=== PATIENT | male | born 1990 | race Caucasian/White ===

== ENCOUNTER 2016-06-15 11:54 | Emergency (ER) | payer MEDICAID ==
[2016-06-15 11:58] VITALS: BP 128/69; PULSE 76; RESP 16; TEMP 97.9; O2SAT 97
[2016-06-15] MEDS ORDERED: FLUORESCEIN SODIUM 1 MG STRIP OP ONE ×2 (12:11→13:00)
[2016-06-15] MEDS ORDERED: PROPARACAINE 0.5% 15 ML OPHT DROP ONE (12:12)
--- NOTE | 2016-06-15 12:28 | EDPHY ---
H & P Stated Complaint: something in L eye HPI/ROS: Chief complaint: Foreign body in left eye History of present illness: This is a 26-year-old male who presents to the emergency department concerned he has a foreign body in his left eye. Patient states he was grilling yesterday when he felt something fly up into his eye. Since then he has had the sensation of something in his eye. He has attempted to wash his eye out multiple times but symptoms persist. He denies other associated signs or symptoms: No changes in vision, no headache. He does not use contacts or glasses. He has never had eye surgery. - Personal History Current Tetanus/Diphtheria Vaccine: Unsure Current Tetanus Diphtheria and Acellular Pertussis (TDAP): Unsure - Medical/Surgical History Hx Asthma: No Hx Chronic Respiratory Disease: No Hx Diabetes: No Hx Cardiac Disease: No Hx Renal Disease: No Hx Cirrhosis: No Hx Alcoholism: No Hx HIV/AIDS: No Hx Splenectomy or Spleen Trauma: No Other PMH: PMH: Denies - Social History Smoking Status: Never smoked - Physical Exam Exam: General Appearance: Alert, nontoxic Eyes: Periorbital tissues are unremarkable. There is no discharge from the eyes. No injection. No subconjunctival hemorrhage. No hyphema. No hypopyon. PERRLA. EOM intact. Red reflex present bilaterally. The superior eyelid is everted on the left eye and a small speck of foreign body is noted and gently removed with a cotton tip swab. No other foreign bodies noted. Respiratory: Chest is non tender, lungs are clear to auscultation. Cardiac: regular rate and rhythm Musculoskeletal: Neck is supple and non tender. Extremities have full range of motion and are non tender. Skin: No rashes or lesions. Constitutional: Initial Vital Signs Temperature (C) 36.6 C 06/15/16 11:57 Heart Rate 76 06/15/16 11:57 Respiratory Rate 16 06/15/16 11:57 Blood Pressure 128/69 H 06/15/16 11:57 O2 Sat (%) 97 06/15/16 11:57 O2 Delivery Mode Room Air Allergies/Adverse Reactions: No Known Allergies Allergy (Verified 02/18/16 10:32) Home Medications: Medication Instructions Recorded Amoxicillin/Clavulanate Pot 875 mg PO BID #6 tab 02/15/16 [Augmentin 875Mg] Polymyxin B Sulfate/Tmp [Polytrim 1 drops EACHEYE Q4 7 Days 06/15/16 Opht Drops (*)] Medical Decision Making Procedures: Visual acuities: Left eye 20/30, right eye 20/40, both eyes 20/30 Procedure: Slit-lamp examination Patient's eye was anesthetized with Alcaine and stained with fluorescein. Examination with cobalt blue and white light reveals a filling defect at the 5 o 'clock position over the iris. No foreign body. No cell and flare. No Ethan sign. ED Course/Re-evaluation: Patient seen under the supervision of my secondary supervising physician Dr. Seda Velázquez. Patient presents to the emergency department for left eye discomfort. A small foreign body is visualized and removed. A corneal abrasion is further noted. Patient's visual acuity appears intact. Patient will be discharged home. He is started on Ophthalmolic antibiotics. He is referred ophthalmology for further evaluation and care. Home care is discussed. Return precautions given. - Data Points Medications Given: Discontinued Medications Fluorescein Sodium ([id number]) 1 mg OP EDNOW ONE Stop: 06/15/16 13:01 Last Admin: 06/15/16 12:20 Dose: 1 mg Proparacaine HCl (Alcaine 0.5%) 1 drops LEFTEYE ONCE ONE Stop: 06/15/16 13:02 Last Admin: 06/15/16 12:20 Dose: 1 drop Departure - Departure Disposition: Home, Routine, Self-Care Clinical Impression: Eye foreign bodies Qualifiers: Encounter type: initial encounter Laterality: left Qualifier Code: (T15.92XA) Foreign body on external eye, part unspecified, left eye, initial encounter Corneal abrasion Qualifiers: Encounter type: initial encounter Laterality: left Qualifier Code: (S05.02XA) Injury of conjunctiva and corneal abrasion without foreign body, left eye, initial encounter Condition: Good Instructions: Corneal Abrasion (ED) Additional Instructions: Please follow-up with Ophthalmology on Thursday for recheck If symptoms worsen or new symptoms develop return to the emergency department for recheck Referrals: NONE *PRIMARY CARE P,. [Primary Care Provider] - As per Instructions Kerwin Rosales MD [Medical Doctor] - As per Instructions Prescriptions: Polymyxin B Sulfate/Tmp [Polytrim Opht Drops (*)] 1 drops EACHEYE Q4 7 Days
[2016-06-15] MEDS ORDERED: PROPARACAINE 0.5% 15 ML OPHT DROP LEFTEYE ONE (13:01)
== END 2016-06-15 12:59 | disposition home or self-care (01) ==
DX: T15.92XA Foreign body on external eye, part unspecified, left eye, initial encounter (principal); S05.02XA Injury of conjunctiva and corneal abrasion without foreign body, left eye, initial encounter; X58.XXXA Exposure to other specified factors, initial encounter; Y93.G9 Activity, other involving cooking and grilling